=== PATIENT | female | born 2000 ===

== ENCOUNTER 2023-04-03 04:48 | Emergency (ER) | payer OTHER ==
[2023-04-03] MEDS ORDERED: Bacitracin 1 PK ONE (05:03)
== END 2023-04-03 05:07 | disposition home or self-care (01) ==
LOC: ERS 04:48
DX: S01.112A Laceration without foreign body of left eyelid and periocular area, initial encounter (principal); F17.210 Nicotine dependence, cigarettes, uncomplicated; W09.8XXA Fall on or from other playground equipment, initial encounter
CPT/HCPCS: 99282